=== PATIENT | female | born 1980 | race Caucasian/White ===

== ENCOUNTER 2019-11-20 12:58 | Inpatient (IN) | payer MEDICARE, OTHER ==
[~2019-11-20] VITALS: Ht 165.1 cm; Wt 65.0 kg
[2019-11-20 13:00] VITALS: BP 138/73
--- NOTE | 2019-11-20 13:12 | Emergency Room Report ---
History of Present Illness General Chief Complaint: Behavioral Complaint Source: EMS Present Illness HPI 41-year-old female presents to the emergency department brought by ambulance and accompanied by PD who is placing patient on 5150 hold for danger to others. EMS was called on scene to and altered person he was banging on doors and having delirious thoughts. Per PD patient fixated on a set of their keys and attempted to take the keys off of their gun belts. Patient gave several names however she continues to be a [employer] Payne. Patient is not complaining of pain however does appear to have ecchymosis around the right orbital area. Per PD patient was ambulatory and verbal. Patient was having flights of ideas and incoherent speech and was not following commands. Pt. was not given anything enroute to ED. HPI and ROS are limited due to poor pt. cooperation. Allergies: Coded Allergies: UNABLE TO ASSESS (Unverified , 11/20/19) COVID-19 Screening Contact w/high risk pt: No Experienced COVID-19 symptoms?: No COVID-19 Testing performed HUNTER GUIDE: No Patient History Past Medical History: see triage record Past Surgical History: none Reviewed Nursing Documentation: PMH: Agreed; PSxH: Agreed Nursing Documentation-PMH Past Medical History: Deferred Review of Systems All Other Systems: negative except mentioned in HPI Physical Exam Vital Signs Date Time Temp Pulse Resp B/P (MAP) Pulse Ox O2 Delivery O2 Flow Rate FiO2 11/20/19 12:51 98.8 92 16 134/68 (90) 98 Room Air Sp02 EP Interpretation: reviewed, normal General Appearance: no apparent distress, alert, GCS 15, non-toxic, other - Disheveled Head: normocephalic, other - swelling and ecchymosis of the right periorbital ST's. Eyes: bilateral eye normal inspection, bilateral eye PERRL, bilateral eye other - constricted pupils ENT: hearing grossly normal, normal voice Neck: full range of motion, no bony tend Respiratory: chest non-tender, lungs clear, normal breath sounds, no respiratory distress, no accessory muscle use, no wheezing, speaking full sentences Cardiovascular #1: regular rate, rhythm, no edema Gastrointestinal: normal bowel sounds, non tender, soft, non-distended, no guarding Musculoskeletal: normal range of motion, gait/station normal, non-tender Neurologic: alert, responsive - to loud or painful stimuli, speech normal, no focal defects Psychiatric: other - Pt. not awake and alert to assess Skin: abrasion - bilateral hands, scabbing and crusting noted to 2cm abrasion of the dorsal left wrist. swelling and ecchymosis of the right periorbital ST's. Medical Decision Making PA Attestation Dr. Andrade Is my supervising Physician whom patient management has been discussed with. Diagnostic Impression: Primary Impression: Pneumonia Qualified Codes: J18.9 - Pneumonia, unspecified organism Additional Impressions: Behavioral disorder Agitation ER Course 41-year-old female presents to the emergency department brought by ambulance and accompanied by PD who is placing patient on 5150 hold for danger to others. EMS was called on scene to and altered person he was banging on doors and having delirious thoughts. Per PD patient fixated on a set of their keys and attempted to take the keys off of their gun belts. Patient gave several names however she continues to be a Genesis Payne. Patient is not complaining of pain however does appear to have ecchymosis around the right orbital area. Per PD patient was ambulatory and verbal. Patient was having flights of ideas and incoherent speech and was not following commands. Pt. was not given anything enroute to ED. HPI and ROS are limited due to poor pt. cooperation. Ddx considered but are not limited to OD, SI/HI, psychosis, UTI, intoxication, acute delirium, concussion, intracranial process just name a few Vital signs: are WNL, pt. is afebrile H&PE are most consistent with behavioral/mental health issue ORDERS: -Bedside Accu-Chek was 137 -CBC: WNL - CMP: Unremarkable - serum ETOH: negative -UA: negative for infection see results attached. -UDS: Positive for THC only -BNP: 43 WNL -Salicylates and Acetaminophen - no acute intoxication. -COVID: negative ED INTERVENTIONS: - 1 Liter NS Bolus IV -Pt. placed on 2 Liters NC - Levaquin IV DISPOSITION: at this time pt. will be admitted to Dr. Morgan for Pneumonia, ALOC , and behavioral disorder. Dr. Morgan agreed to admit the pt. and to continue pt. care management. Labs Test 11/20/19 13:10 White Blood Count 9.0 K/UL (4.8-10.8) Red Blood Count 4.23 M/UL (4.20-5.40) Hemoglobin 13.0 G/DL (12.0-16.0) Hematocrit 37.8 % (37.0-47.0) Mean Corpuscular Volume 89 FL (80-99) Mean Corpuscular Hemoglobin 30.8 PG (27.0-31.0) Mean Corpuscular Hemoglobin Concent 34.5 G/DL (32.0-36.0) Red Cell Distribution Width 14.6 % (11.6-14.8) Platelet Count 257 K/UL (150-450) Mean Platelet Volume 7.5 FL (6.5-10.1) Neutrophils (%) (Auto) 60.9 % (45.0-75.0) Lymphocytes (%) (Auto) 31.8 % (20.0-45.0) Monocytes (%) (Auto) 5.2 % (1.0-10.0) Eosinophils (%) (Auto) 1.0 % (0.0-3.0) Basophils (%) (Auto) 1.2 % (0.0-2.0) Urine HCG, Qualitative Negative (NEGATIVE) Sodium Level 134 MMOL/L (136-145) Potassium Level 3.4 MMOL/L (3.5-5.1) Chloride Level 98 MMOL/L (98-107) Carbon Dioxide Level 28 MMOL/L (21-32) Anion Gap 8 mmol/L (5-15) Blood Urea Nitrogen 9 mg/dL (7-18) Creatinine 1.2 MG/DL (0.55-1.30) Estimat Glomerular Filtration Rate 49.8 mL/min (>60) Glucose Level 126 MG/DL (74-106) Calcium Level 8.8 MG/DL (8.5-10.1) Total Bilirubin 0.7 MG/DL (0.2-1.0) Aspartate Amino Transf (AST/SGOT) 71 U/L (15-37) Alanine Aminotransferase (ALT/SGPT) 45 U/L (12-78) Alkaline Phosphatase 55 U/L (46-116) Pro-B-Type Natriuretic Peptide 43 pg/mL (0-125) Total Protein 7.2 G/DL (6.4-8.2) Albumin 4.1 G/DL (3.4-5.0) Globulin 3.1 g/dL Albumin/Globulin Ratio 1.3 (1.0-2.7) Salicylates Level 4.7 ug/mL (2.8-20) Urine Opiates Screen Negative (NEGATIVE) Acetaminophen Level < 2 MCG/ML (10-30) Urine Barbiturates Screen Negative (NEGATIVE) Phencyclidine (PCP) Screen Negative (NEGATIVE) Urine Amphetamines Screen Negative (NEGATIVE) Urine Benzodiazepines Screen Negative (NEGATIVE) Urine Cocaine Screen Negative (NEGATIVE) Urine Marijuana (THC) Screen Positive (NEGATIVE) Serum Alcohol < 3 mg/dL EKG Diagnostic Results Rate: normal - 61 Bpm Rhythm: NSR ST Segments: no acute changes ASA given to the pt in ED: No PA Scribe Text This Interpretation was scribed by RONALDO Garibay. Chest X-Ray Diagnostic Results Chest X-Ray Diagnostic Results : Chest X-Ray Ordered: Yes # of Views/Limited/Complete: 1 View Indication: Shortness of Breath EP Interpretation: Yes PA Xray: Interpretation reviewed, by supervising MD, and agrees with findings. Interpretation: no effusion, no pneumothorax, other - mild interstitial fluids Impression: Other - abnormal Electronically Signed by: Juliana Garibay PA-C CT/MRI/US Diagnostic Results CT/MRI/US Diagnostic Results #1: Imaging Test Ordered: Ct Head No Contrast Impression " No evidence of acute fracture, hemorrhage, or intracranial process" . --Per official radiology report- Please see report for specific details. CT/MRI/US Diagnostic Results #2: Imaging Test Ordered: CT Facial Bones no Contrast Impression " Swelling of the soft tissues of the right periorbital region, no acute fractures" . --Per official radiology report- Please see report for specific details. Last Vital Signs Date Time Temp Pulse Resp B/P (MAP) Pulse Ox O2 Delivery O2 Flow Rate FiO2 11/20/19 12:51 98.8 92 16 134/68 (90) 98 Room Air Disposition: ADMITTED INPATIENT Condition: Serious Scripts Unable to Obtain Active Prescriptions or Reported Meds Juliana Garibay Nov 20, 2019 13:12
[2019-11-20 13:42] LABS: BASOPHILS % (AUTO) 1.2 % (0.0-2.0); HEMATOCRIT 37.8 % (37.0-47.0); LYMPHOCYTES % (AUTO) 31.8 % (20.0-45.0); MEAN CORPUSCULAR VOLUME 89 FL (80-99); MONOCYTES % (AUTO) 5.2 % (1.0-10.0); NEUTROPHILS % (AUTO) 60.9 % (45.0-75.0); PLATELET COUNT 257 K/UL (150-450); RED BLOOD COUNT 4.23 M/UL (4.20-5.40); RED CELL DISTRIBUTION WIDTH 14.6 % (11.6-14.8)
[2019-11-20 13:48] LABS: ANION GAP 8 mmol/L (5-15); BLOOD UREA NITROGEN 9 mg/dL (7-18); CALCIUM 8.8 MG/DL (8.5-10.1); CARBON DIOXIDE 28 MMOL/L (21-32); CHLORIDE 98 MMOL/L (98-107); CREATININE 1.2 MG/DL (0.55-1.30); POTASSIUM 3.4 MMOL/L (3.5-5.1); SODIUM 134 MMOL/L (136-145)
[2019-11-20 13:57] LABS: ALANINE AMINOTRANSFERASE 45 U/L (12-78); ALBUMIN 4.1 G/DL (3.4-5.0); ALBUMIN/GLOBULIN RATIO 1.3 (1.0-2.7); ALKALINE PHOSPHATASE 55 U/L (46-116); ASPARTATE AMINO TRANSFERASE 71 U/L (15-37); BILIRUBIN,TOTAL 0.7 MG/DL (0.2-1.0)
[2019-11-20 15:20] VITALS: BP 92/66
--- NOTE | 2019-11-20 15:54 | Diagnostic Imaging Report ---
Indications: Pain and right periorbital ecchymosis Technique: Spiral images obtained through the facial bones. No IV contrast utilized. Multiplanar reconstructions were generated.Total dose length product 329 mGycm. CTDIvol(s) 15 mGy. Dose reduction achieved using automated exposure control Comparison: none Findings: Some image degradation due to motion artifact. There is minimal right periorbital soft tissue swelling. No acute fractures. No worrisome sinus opacification. The optic globes and retroseptal orbits are intact. There is evidence of multiple maxillary apical root abscesses and a right mandibular apical root abscess. There is also evidence of multiple dental caries There is asymmetric appearance to the bilateral parotid glands, with the right parotid gland being fatty replaced. There is lingual jewelry noted. Impression: Findings as noted. No definite acute bony trauma. Evidence of dental disease as described The CT scanner at [facility] is accredited by the [employer] and the scans are performed using protocols designed to limit radiation exposure to as low as reasonably achievable to attain images of sufficient resolution adequate for diagnostic evaluation.
--- NOTE | 2019-11-20 15:56 | Diagnostic Imaging Report ---
Indications: Altered level of consciousness Technique: Spiral acquisitions obtained through the brain. Angled axial and coronal 5 x 5 mm slices were reconstructed. Total dose length product 1018 mGycm. CTDI vol(s) 53 mGy. Dose reduction achieved using automated exposure control Comparison: None. Findings: No acute intracranial hemorrhage or edema. No mass effect or midline shift. Normal evans-white differentiation. Normal size ventricles and extra axial CSF spaces. Visualized orbits and sinuses are unremarkable. The mastoids are clear. The calvarium is intact Impression: Negative The CT scanner at [facility] is accredited by the [employer] and the scans are performed using protocols designed to limit radiation exposure to as low as reasonably achievable to attain images of sufficient resolution adequate for diagnostic evaluation.
[2019-11-20 17:20] VITALS: BP 121/69
--- NOTE | 2019-11-20 17:39 | Diagnostic Imaging Report ---
Indication: Chest Technique: One view of the chest Comparison: none Findings: There is equivocal mild interstitial congestion. Heart size is normal. No focal airspace consolidation. Pleural spaces are clear. Impression: Questionable mild interstitial congestion. Correlate with clinical findings
[2019-11-20 21:08] VITALS: BP 120/69
[2019-11-20] MEDS ORDERED: Acetaminophen 500mg (ES) tab ORAL PRN (22:15)
[2019-11-20] MEDS ORDERED: LORazepam Inj 2mg/ml 1ml IM ONE (22:30)
[2019-11-20] MEDS: LORazepam 1mg tab ORAL PRN (22:43)
[2019-11-21 08:00] VITALS: BP 128/87
[2019-11-21] MEDS: LORazepam 1mg tab ORAL PRN (08:51)
[2019-11-21 08:59] LABS: BASOPHILS % (AUTO) 1.7 % (0.0-2.0); EOSINOPHILS % (AUTO) 2.3 % (0.0-3.0); HEMATOCRIT 41.9 % (37.0-47.0); HEMOGLOBIN 14.4 G/DL (12.0-16.0); LYMPHOCYTES % (AUTO) 35.7 % (20.0-45.0); MEAN CORPUSCULAR VOLUME 90 FL (80-99); MONOCYTES % (AUTO) 4.8 % (1.0-10.0); NEUTROPHILS % (AUTO) 55.4 % (45.0-75.0); PLATELET COUNT 281 K/UL (150-450); RED BLOOD COUNT 4.64 M/UL (4.20-5.40); WHITE BLOOD COUNT 9.1 K/UL (4.8-10.8)
[2019-11-21 09:55] LABS: ALANINE AMINOTRANSFERASE 43 U/L (12-78); ALBUMIN 4.1 G/DL (3.4-5.0); ALBUMIN/GLOBULIN RATIO 1.2 (1.0-2.7); ALKALINE PHOSPHATASE 56 U/L (46-116); ANION GAP 6 mmol/L (5-15); ASPARTATE AMINO TRANSFERASE 47 U/L (15-37); BILIRUBIN,TOTAL 0.7 MG/DL (0.2-1.0); BLOOD UREA NITROGEN 8 mg/dL (7-18); CALCIUM 8.7 MG/DL (8.5-10.1); CARBON DIOXIDE 30 MMOL/L (21-32); CHLORIDE 103 MMOL/L (98-107); CREATININE 1.2 MG/DL (0.55-1.30); SODIUM 139 MMOL/L (136-145)
[2019-11-21] MEDS: Haloperidol 5mg/ml Inj IM PRN (11:32)
[2019-11-21 12:00] VITALS: BP 123/80
[2019-11-21] MEDS ORDERED: Varibar Thin Liquid powder 148gm MC PRN (15:30)
[2019-11-21] MEDS ORDERED: Varibar Pudding 230ml MC PRN (15:30)
[2019-11-21] MEDS ORDERED: Varibar Honey 250ml MC PRN (15:30)
[2019-11-21] MEDS ORDERED: Varibar Nectar 240ml MC PRN (15:30)
[2019-11-21 16:00] VITALS: BP 115/62
[2019-11-21] MEDS ORDERED: Haloperidol Decanoate (Long Acting) 50mg Inj IM ONE (17:00)
--- NOTE | 2019-11-21 18:15 | Consultation ---
DATE OF CONSULTATION: 11/21/2019 INFECTIOUS DISEASES CONSULTATION CONSULTING PHYSICIAN: Murray Duncan MD PRIMARY ATTENDING PHYSICIAN: Anselmo Morgan MD REASON FOR CONSULT: Abnormal chest x-ray. HISTORY OF PRESENT ILLNESS: The patient is a 39-year-old white female admitted yesterday because of altered level of consciousness. The patient was confused, knocking at the people's door, and was brought up by police department. She was put on 5150 for danger to others. The patient does not remember exactly what happened. PAST MEDICAL HISTORY: Significant for marijuana abuse and history of thyroid cancer. She had thyroidectomy and currently has hypothyroidism. She is homeless. ALLERGIES: This patient states she is allergic to penicillin. MEDICATIONS: Got a dose of Levaquin. Getting haloperidol, Remeron, lorazepam, and Tylenol. SOCIAL HISTORY: Single. Homeless. Smoker. Uses medical marijuana. States that she has a daughter. REVIEW OF SYSTEMS: Denies any fever or chills. Denies coughing. No nausea. No vomiting. No dysuria. Scratches on both arms. Does not remember what happened there. PHYSICAL EXAMINATION: VITAL SIGNS: Temperature 97.4, pulse 65, blood pressure 128/87. GENERAL APPEARANCE: Seems to have normal weight. HEAD AND NECK: She has right eye bruise that seems to be a couple of days old. HEART: Normal rate. LUNGS: Clear. ABDOMEN: Soft. EXTREMITIES: She has no edema, finger clubbing. SKIN: Lacerations on both knuckles. NEUROLOGIC: She is awake, alert, and oriented x3. LABORATORY AND DIAGNOSTIC DATA: Sodium 139, potassium 4, chloride 103, bicarb 30, BUN 8, creatinine 1.2, glucose is 47. WBC 9.1, hemoglobin 14.4, hematocrit 41.9, and platelet is 281,000. Urine toxicology was positive for marijuana. COVID-19 test was negative. Chest x-ray showed mild interstitial congestion. CT scan of the head was negative except dental disease. IMPRESSION: Abnormal chest x-ray, mostly likely secondary to chronic smoking, COPD. The patient does not look septic. She has nicotine dependence and willing to quit. She has multiple lacerations on both hands that do not look infected, nicotine dependence, has hypothyroidism, and has hypoglycemia. RECOMMENDATION: We will start the patient on nicotine patch. We will check TSH level. Needs an endocrine evaluation for hypothyroidism. At the end of my exam, I thank Dr. Morgan for involving me in the care of this patient. Murray Duncan M.D. DR: MARILU JOB#: [id number] CC:
--- NOTE | 2019-11-21 18:55 | Consultation ---
Consult Note Consult Note CONSULTING PHYSICIAN: Abel Mcgee MD PRIMARY ATTENDING PHYSICIAN: Anselmo Morgan MD REASON FOR CONSULT: Abnormal chest x-ray. HISTORY OF PRESENT ILLNESS: The patient is a 39-year-old white female admitted yesterday because of altered level of consciousness. The patient was confused, knocking at the people's door, and was brought up by police department. She was put on 5150 for danger to others. The patient does not remember exactly what happened. Her CXR shows mild inyterstitial prominence. She denies any respiratory symptoms. PAST MEDICAL HISTORY: Significant for marijuana abuse and history of thyroid cancer. She had thyroidectomy and currently has hypothyroidism. She is homeless. ALLERGIES: This patient states she is allergic to penicillin. SOCIAL HISTORY: Single. Homeless. Smoker. Uses medical marijuana. REVIEW OF SYSTEMS: Denies any fever or chills. Denies coughing. No nausea. No vomiting. No dysuria. Scratches on both arms. Does not remember what happened there. PHYSICAL EXAMINATION: VITAL SIGNS: Temperature 97.4, pulse 65, blood pressure 128/87. GENERAL APPEARANCE: Seems to have normal weight. HEAD AND NECK: She has right eye bruise that seems to be a couple of days old. HEART: Normal rate. LUNGS: Clear. ABDOMEN: Soft. EXTREMITIES: She has no edema, finger clubbing. SKIN: Lacerations on both knuckles. NEUROLOGIC: She is awake, alert, and oriented x3. LABORATORY AND DIAGNOSTIC DATA: Sodium 139, potassium 4, chloride 103, bicarb 30, BUN 8, creatinine 1.2, glucose is 47. WBC 9.1, hemoglobin 14.4, hematocrit 41.9, and platelet is 281,000. Urine toxicology was positive for marijuana. COVID-19 test was negative. Chest x-ray showed mild interstitial congestion. CT scan of the head was negative except dental disease. IMPRESSION: Abnormal chest x-ray, non-specific; do not suspect pneumonia Likely underlying COPD RECOMMENDATION: None from pulmonary standpoint Advised tobacco cessation Jo Cohen Omar Syed MD Nov 21, 2019 18:55
[2019-11-21 20:00] VITALS: BP 119/78
--- NOTE | 2019-11-21 21:51 | Initial Psychiatric Evaluation ---
Psychiatry Consultation Psychiatry Consultation Chief Complaint: Behavioral Complaint Allergies: Coded Allergies: UNABLE TO ASSESS (Unverified , 11/20/19) Medication History Unable to Obtain Active Prescriptions or Reported Meds Objective Data Height (Feet): 5 Height (Inches): 5.00 Weight (Pounds): 140 Laureen Nesbitt MD Nov 21, 2019 21:51
--- NOTE | 2019-11-21 23:14 | Consultation ---
DATE OF CONSULTATION: 11/20/2019 CONSULTING PHYSICIAN: Laureen Nesbitt MD. HISTORY OF PRESENT ILLNESS: This is a 39-year-old female who has been admitted yesterday. I have seen patient yesterday and have prescribed medication. This is a late entry. Patient presented to the emergency room on a 5150 for danger to others. Patient is delusional. Apparently, she has been banging on door and has been delusional. Patient in the hospital states that she is looking for her child. She needs to go and olya her daughter. She is jumping from one subject to another and she is easily agitated. She received a cocktail last night for aggressive and agitation. PAST PSYCHIATRIC HISTORY: Unknown. It appears that patient has history of psychotic disorder. PAST MEDICAL HISTORY: History of pneumonia. ALLERGIES: Unknown. SUBSTANCE ABUSE HISTORY: Her system is positive for cannabis. MENTAL STATUS EXAMINATION: Patient is alert, disoriented. Mood is agitated. Affect is flat. Thought process is disorganized. Thought content is significant for delusional thoughts. Cognition is impaired. Insight and judgment impaired. ASSESSMENT: Nebo I Schizophrenia. Nebo II Deferred. Nebo III As above. Nebo IV Homelessness. Nebo V 20. PLAN: 1. We will start patient on risperidone. 2. Ativan p.r.n. 3. Haldol decanoate. 4. Discussed with the nurse. Laureen Nesbitt M.D. DR: JERICHO JOB#: [id number] CC:
--- NOTE | 2019-11-21 23:14 | History and Physical Report ---
DATE OF ADMISSION: 11/20/2019 HISTORY OF PRESENT ILLNESS: The patient is admitted for altered mental status, came on a hold for agitation, attacking police. The patient was initially nonresponsive, sleeping, was only aroused initially by painful and loud verbal stimuli. Her O2 sat was initially borderline, was placed on oxygen in the emergency room. Chest x-ray showed interstitial infiltrates. Now, she is more alert and slow to respond, but is completely alert and oriented x2. Denies pain. Denies shortness of breath. Denies fever or chills. Denies abdominal pain. Denies constipation. PAST MEDICAL HISTORY: Significant for psychosis and mood disorder and history of thyroid cancer. The patient is currently homeless. PAST SURGICAL HISTORY: Total thyroidectomy, neck surgery. FAMILY HISTORY: Noncontributory. SOCIAL HISTORY: The patient has history of smoking, history of drug abuse, history of alcohol abuse. The patient is homeless. MEDICATIONS: None. REVIEW OF SYSTEMS: HEENT: Denies headaches. RESPIRATORY: Denies shortness of breath. Denies cough. CARDIOVASCULAR: Denies chest pain. Denies nausea, vomiting, or diarrhea. EXTREMITIES: Denies pain. CENTRAL NERVOUS SYSTEM: Denies changes in speech pattern. PHYSICAL EXAMINATION: VITAL SIGNS: Temperature is 97.4, pulse is 65, blood pressure 128/87. HEENT: PERRLA. NECK: Supple. No lymphadenopathy. CHEST: Clear to auscultation. CARDIOVASCULAR: Regular rate and rhythm. No murmurs or extra sounds. GASTROINTESTINAL: Soft, nontender, nondistended. No organomegaly. EXTREMITIES: No edema. Moves all four extremities. Sensory intact. Reflexes on both sides. Oriented x2 LABORATORY DATA: WBC of 9, hemoglobin 13, platelets of 257. Sodium 134, potassium 3.4, BUN of 9, creatinine 1.2, and glucose 126. ASSESSMENT AND PLAN: Altered mental status, psychiatric patient, schizophrenia, combative initially, currently easily agitated and irritable. I have consulted Dr. Araujo, Dr. Murray Duncan, Dr. Abel Mcgee, and Dr. Nesbitt to help with the management of the above-mentioned abnormalities and symptoms. Anselmo Morgan M.D. DR: LIONEL JOB#: [id number] CC:
[2019-11-22 04:00] VITALS: BP 113/57
[2019-11-22 08:00] VITALS: BP 117/74
--- NOTE | 2019-11-22 09:25 | Consultation ---
History of Present Illness General Date patient seen: Nov 22, 2019 Time patient seen: 09:15 - am Chief Complaint: Generalized body pain Referring physician: Eddie Reason for Consultation: Pain Management Present Illness HPI HPI: This is a 39 y/o female seen on the med/surg floor of [facility] for initial pain management consultation. Patient was admitted under the care of Dr. Morgan due to psychiatric disorder. Has a h/o thyroid cancer and thyroidectomy c/o generalized body pain, started on Tylenol 500mg PO 1 tab Q6H PRN. At this time showing no signs of pain and we were consulted so patient has adequate pain control while here in the hospital. PAST MEDICAL HISTORY: Significant for psychosis and mood disorder and history of thyroid cancer. The patient is currently homeless. PAST SURGICAL HISTORY: Total thyroidectomy, neck surgery. FAMILY HISTORY: Noncontributory. SOCIAL HISTORY: The patient has history of smoking, history of drug abuse, history of alcohol abuse. The patient is homeless. MEDICATIONS: None. Allergies: Coded Allergies: UNABLE TO ASSESS (Unverified , 11/20/19) Medication History Unable to Obtain Active Prescriptions or Reported Meds Patient History Healthcare decision maker Resuscitation status Advanced Directive on File Review of Systems ROS Narrative REVIEW OF SYSTEMS: HEENT: Denies headaches. RESPIRATORY: Denies shortness of breath. Denies cough. CARDIOVASCULAR: Denies chest pain. Denies nausea, vomiting, or diarrhea. EXTREMITIES: Denies pain. CENTRAL NERVOUS SYSTEM: Denies changes in speech pattern. Physical Exam Physical Exam Narrative PHYSICAL EXAMINATION: VITAL SIGNS: Temperature is 97.4, pulse is 65, blood pressure 128/87. HEENT: PERRLA. NECK: Supple. No lymphadenopathy. CHEST: Clear to auscultation. CARDIOVASCULAR: Regular rate and rhythm. No murmurs or extra sounds. GASTROINTESTINAL: Soft, nontender, nondistended. No organomegaly. EXTREMITIES: No edema. Moves all four extremities. Sensory intact. Reflexes on both sides. Oriented x2 Last 24 Hour Vital Signs Date Time Temp Pulse Resp B/P (MAP) Pulse Ox O2 Delivery O2 Flow Rate FiO2 11/22/19 08:00 98.0 75 18 117/74 (88) 98 11/22/19 04:00 97.8 77 18 113/57 (75) 97 11/21/19 21:00 Room Air 11/21/19 20:00 98.6 78 18 119/78 (92) 97 11/21/19 16:00 98.3 79 20 115/62 (79) 97 11/21/19 12:00 97.9 51 20 123/80 (94) 100 Intake and Output 11/21/19 11/22/19 19:00 07:00 Intake Total 780 ml Balance 780 ml Intake Oral 780 ml # Voids 3 3 Laboratory Tests Test 11/22/19 05:20 Thyroid Stimulating Hormone (TSH) 101.892 uiU/mL (0.358-3.740) Height (Feet): 5 Height (Inches): 5.00 Weight (Pounds): 140 Medications Current Medications Medications (Trade) Dose Ordered Sig/Alicia Route PRN Reason Start Time Stop Time Status Last Admin Dose Admin Acetaminophen (Tylenol) 500 mg Q6HR PRN ORAL Mild Pain (Pain Scale 1-3) 11/20/19 22:15 12/20/19 22:14 Barium Sulfate (Varibar Honey) 250 ml NOW PRN MC RAD 11/21/19 15:30 11/24/19 15:18 Barium Sulfate (Varibar Edmundson) 240 ml NOW PRN MC RAD 11/21/19 15:30 11/24/19 15:18 Barium Sulfate (Varibar Pudding) 230 ml NOW PRN MC RAD 11/21/19 15:30 11/24/19 15:18 Barium Sulfate (Varibar Thin Liquid powder) 148 gm NOW PRN MC RAD 11/21/19 15:30 11/24/19 15:18 Haloperidol Lactate (Haldol) 10 mg Q8H PRN IM AGITATION 11/20/19 22:45 01/04/20 22:44 11/21/19 11:32 Lorazepam (Ativan) 1 mg Q4HR PRN ORAL For Anxiety 11/20/19 22:15 11/27/19 22:14 11/21/19 08:51 Nicotine (Nicoderm) 1 patch Q24H TDERMAL 11/21/19 11:30 02/19/20 11:29 11/21/19 11:10 Risperidone (RisperDAL) 2 mg BEDTIME ORAL 11/21/19 21:00 01/05/20 20:59 11/21/19 21:05 Sodium Chloride 1,000 ml @ 60 mls/hr [id number] IV 11/20/19 22:15 12/20/19 22:14 11/20/19 22:40 Assessment/Plan Assessment/Plan: (1) Peripheral Neuropathy Patient will be continued on Tylenol Possible to start the patient on Neurontin will discuss more with patient. D/w Dr. Harper and he concurred. Thank you for consult. Raheel Blanchard Nov 22, 2019 09:25
--- NOTE | 2019-11-22 09:38 | Pulmonology Progress Note ---
Subjective Interval Events: None new Constitutional: Reports: no symptoms HEENT: Repors: no symptoms Respiratory: Reports: no symptoms Cardiovascular: Reports: no symptoms Gastrointestinal/Abdominal: Reports: no symptoms Neurologic: Reports: no symptoms Allergies: Coded Allergies: UNABLE TO ASSESS (Unverified , 11/20/19) Objective Last 24 Hour Vital Signs Date Time Temp Pulse Resp B/P (MAP) Pulse Ox O2 Delivery O2 Flow Rate FiO2 11/22/19 08:00 98.0 75 18 117/74 (88) 98 11/22/19 04:00 97.8 77 18 113/57 (75) 97 11/21/19 21:00 Room Air 11/21/19 20:00 98.6 78 18 119/78 (92) 97 11/21/19 16:00 98.3 79 20 115/62 (79) 97 11/21/19 12:00 97.9 51 20 123/80 (94) 100 Intake and Output 11/21/19 11/22/19 19:00 07:00 Intake Total 780 ml Balance 780 ml Intake Oral 780 ml # Voids 3 3 General Appearance: no acute distress HEENT: normocephalic Respiratory: chest wall non-tender, lungs clear Cardiovascular: normal peripheral pulses, normal rate Abdomen: normal bowel sounds Microbiology Date/Time Source Procedure Growth Status 11/20/19 18:39 Nasopharynx SARS-CoV-2 RdRp Gene Assay - Final Complete 11/20/19 20:33 Rectum Received Laboratory Tests 11/22/19 05:20: Thyroid Stimulating Hormone (TSH) 101.892H Current Medications Medications (Trade) Dose Ordered Sig/Alicia Route PRN Reason Start Time Stop Time Status Last Admin Dose Admin Acetaminophen (Tylenol) 500 mg Q6HR PRN ORAL Mild Pain (Pain Scale 1-3) 11/20/19 22:15 12/20/19 22:14 Barium Sulfate (Varibar Honey) 250 ml NOW PRN MC RAD 11/21/19 15:30 11/24/19 15:18 Barium Sulfate (Varibar [place]) 240 ml NOW PRN MC RAD 11/21/19 15:30 11/24/19 15:18 Barium Sulfate (Varibar Pudding) 230 ml NOW PRN MC RAD 11/21/19 15:30 11/24/19 15:18 Barium Sulfate (Varibar Thin Liquid powder) 148 gm NOW PRN MC RAD 11/21/19 15:30 11/24/19 15:18 Haloperidol Lactate (Haldol) 10 mg Q8H PRN IM AGITATION 11/20/19 22:45 01/04/20 22:44 11/21/19 11:32 Lorazepam (Ativan) 1 mg Q4HR PRN ORAL For Anxiety 11/20/19 22:15 11/27/19 22:14 11/21/19 08:51 Nicotine (Nicoderm) 1 patch Q24H TDERMAL 11/21/19 11:30 02/19/20 11:29 11/21/19 11:10 Risperidone (RisperDAL) 2 mg BEDTIME ORAL 11/21/19 21:00 01/05/20 20:59 11/21/19 21:05 Sodium Chloride 1,000 ml @ 60 mls/hr [id number] IV 11/20/19 22:15 12/20/19 22:14 11/20/19 22:40 Assessment/Plan Assessment/Plan IMPRESSION: Abnormal chest x-ray, non-specific; do not suspect pneumonia Likely underlying COPD RECOMMENDATION: None from pulmonary standpoint Advised tobacco cessation Medically stable to discharge Jo Cohen Omar Syed MD Nov 22, 2019 09:38
[2019-11-22 12:00] VITALS: BP 129/69
--- NOTE | 2019-11-22 13:27 | Infectious Diseases Prog Note ---
Assessment/Plan Assessment/Plan IMPRESSION: Abnormal chest x-ray, COPD. The patient does not look septic. Nicotine dependence Multiple abrasions on both hands Hypothyroidism, Hypoglycemia. RECOMMENDATION: Continue nicotine patch. Start on Levothyroxine Subjective ROS Limited/Unobtainable: No Constitutional: Reports: no symptoms Respiratory: Reports: no symptoms Cardiovascular: Reports: no symptoms Gastrointestinal/Abdominal: Reports: no symptoms Genitourinary: Reports: no symptoms Allergies: Coded Allergies: UNABLE TO ASSESS (Unverified , 11/20/19) Objective Last 24 Hour Vital Signs Date Time Temp Pulse Resp B/P (MAP) Pulse Ox O2 Delivery O2 Flow Rate FiO2 11/22/19 09:00 Room Air 11/22/19 09:00 Room Air 11/22/19 08:00 98.0 75 18 117/74 (88) 98 11/22/19 04:00 97.8 77 18 113/57 (75) 97 11/21/19 21:00 Room Air 11/21/19 20:00 98.6 78 18 119/78 (92) 97 11/21/19 16:00 98.3 79 20 115/62 (79) 97 Height (Feet): 5 Height (Inches): 5.00 Weight (Pounds): 140 General Appearance: no acute distress HEENT: mucous membranes moist Respiratory/Chest: lungs clear Cardiovascular: normal rate Abdomen: soft, non tender Extremities: no edema Neurologic/Psychiatric: alert, responsive Microbiology Date/Time Source Procedure Growth Status 11/20/19 18:39 Nasopharynx SARS-CoV-2 RdRp Gene Assay - Final Complete 11/20/19 20:33 Rectum Received Laboratory Tests Test 11/22/19 05:20 Thyroid Stimulating Hormone (TSH) 101.892 uiU/mL (0.358-3.740) Current Medications Medications (Trade) Dose Ordered Sig/Alicia Route PRN Reason Start Time Stop Time Status Last Admin Dose Admin Acetaminophen (Tylenol) 500 mg Q6HR PRN ORAL Mild Pain (Pain Scale 1-3) 11/20/19 22:15 12/20/19 22:14 Barium Sulfate (Varibar Honey) 250 ml NOW PRN MC RAD 11/21/19 15:30 11/24/19 15:18 Barium Sulfate (Varibar [place]) 240 ml NOW PRN MC RAD 11/21/19 15:30 11/24/19 15:18 Barium Sulfate (Varibar Pudding) 230 ml NOW PRN MC RAD 11/21/19 15:30 11/24/19 15:18 Barium Sulfate (Varibar Thin Liquid powder) 148 gm NOW PRN RAD 11/21/19 15:30 11/24/19 15:18 Haloperidol Lactate (Haldol) 10 mg Q8H PRN IM AGITATION 11/20/19 22:45 01/04/20 22:44 11/21/19 11:32 Lorazepam (Ativan) 1 mg Q4HR PRN ORAL For Anxiety 11/20/19 22:15 11/27/19 22:14 11/21/19 08:51 Nicotine (Nicoderm) 1 patch Q24H TDERMAL 11/21/19 11:30 02/19/20 11:29 11/22/19 11:19 Risperidone (RisperDAL) 2 mg BEDTIME ORAL 11/21/19 21:00 01/05/20 20:59 11/21/19 21:05 Sodium Chloride 1,000 ml @ 60 mls/hr [id number] IV 11/20/19 22:15 12/20/19 22:14 11/20/19 22:40 Murray Duncan MD Nov 22, 2019 13:27
[2019-11-22 16:00] VITALS: BP 125/85
[2019-11-22] MEDS: Haloperidol 5mg/ml Inj IM PRN (20:13)
[2019-11-22 20:30] VITALS: BP 128/78
--- NOTE | 2019-11-22 20:57 | General Progress Note ---
Assessment/Plan Problem List: (1) Alteration consciousness ICD Codes: R40.4 - Transient alteration of awareness SNOMED: 4819089 (2) Agitation ICD Codes: R45.1 - Restlessness and agitation SNOMED: 685939320 (3) Behavioral disorder SNOMED: 462254294 (4) Pneumonia ICD Codes: J18.9 - Pneumonia, unspecified organism SNOMED: 421308267 Qualifiers: Qualified Codes: J18.9 - Pneumonia, unspecified organism Status: progressing Assessment/Plan: afebrile psychosis transfer/dc to appropiate place per recommendation of dr velez pt is mutiple psychiatric diagnosis needs clearance from dr velez for dc Subjective ROS Limited/Unobtainable: Yes Allergies: Coded Allergies: UNABLE TO ASSESS (Unverified , 11/20/19) Objective Last 24 Hour Vital Signs Date Time Temp Pulse Resp B/P (MAP) Pulse Ox O2 Delivery O2 Flow Rate FiO2 11/22/19 16:00 98.0 72 20 125/85 (98) 100 11/22/19 12:00 97.8 74 18 129/69 (89) 98 11/22/19 09:00 Room Air 11/22/19 09:00 Room Air 11/22/19 08:00 98.0 75 18 117/74 (88) 98 11/22/19 04:00 97.8 77 18 113/57 (75) 97 11/21/19 21:00 Room Air Intake and Output 11/21/19 11/22/19 19:00 07:00 Intake Total 780 ml Balance 780 ml Intake Oral 780 ml # Voids 3 3 Laboratory Tests 11/22/19 05:20: Thyroid Stimulating Hormone (TSH) 101.892H Height (Feet): 5 Height (Inches): 5.00 Weight (Pounds): 140 Anselmo Morgan MD Nov 22, 2019 20:57
[2019-11-22] MEDS ORDERED: DiphenhydrAMINE 50mg/ml Inj IM SCH (21:00)
--- NOTE | 2019-11-22 21:35 | Psych Consult Progress Note ---
Psychiatry Progress Note Psychiatry Progress Note Subjective the pt was agitated and confused the pt lacks capacity to make decisions. and should not leave ama/ the pt is delusional Medications Current Medications Medications (Trade) Dose Ordered Sig/Alicia Route PRN Reason Start Time Stop Time Status Last Admin Dose Admin Acetaminophen (Tylenol) 500 mg Q6HR PRN ORAL Mild Pain (Pain Scale 1-3) 11/20/19 22:15 12/20/19 22:14 Barium Sulfate (Varibar Honey) 250 ml NOW PRN MC RAD 11/21/19 15:30 11/24/19 15:18 Barium Sulfate (Varibar [place]) 240 ml NOW PRN MC RAD 11/21/19 15:30 11/24/19 15:18 Barium Sulfate (Varibar Pudding) 230 ml NOW PRN MC RAD 11/21/19 15:30 11/24/19 15:18 Barium Sulfate (Varibar Thin Liquid powder) 148 gm NOW PRN MC RAD 11/21/19 15:30 11/24/19 15:18 Diphenhydramine HCl (Benadryl) 50 mg ONCE IM 11/22/19 21:00 11/22/19 23:00 11/22/19 21:03 Haloperidol Lactate (Haldol) 10 mg Q8H PRN IM AGITATION 11/20/19 22:45 01/04/20 22:44 11/22/19 20:13 Levothyroxine Sodium (Synthroid) 150 mcg DAILY@0630 ORAL 11/23/19 06:30 12/23/19 06:29 Lorazepam (Ativan) 1 mg Q4HR PRN ORAL For Anxiety 11/20/19 22:15 11/27/19 22:14 11/21/19 08:51 Nicotine (Nicoderm) 1 patch Q24H TDERMAL 11/21/19 11:30 02/19/20 11:29 11/22/19 11:19 Risperidone (RisperDAL) 2 mg BEDTIME ORAL 11/21/19 21:00 01/05/20 20:59 11/22/19 20:57 Sodium Chloride 1,000 ml @ 60 mls/hr [id number] IV 11/20/19 22:15 12/20/19 22:14 11/20/19 22:40 Allergies: Coded Allergies: UNABLE TO ASSESS (Unverified , 11/20/19) Objective Data Height (Feet): 5 Height (Inches): 5.00 Weight (Pounds): 140 Additional Comments: alert, disoriented. Mood is agitated. Affect is flat. Thought process is disorganized. Thought content is significant for delusional thoughts. Cognition is impaired. Insight and judgment impaired. Assessment/Plan Status: progressing Assessment/Plan: ASSESSMENT: [place] I Schizophrenia. [place] II Deferred. [place] III As above. [place] IV Homelessness. [place] V 20. PLAN: 1. We will start patient on risperidone. 2. Ativan p.r.n. 3. Haldol decanoate. 4. Discussed with the nurse. Laureen Nesbitt MD Nov 22, 2019 21:35
[2019-11-23 06:00] VITALS: BP 116/71
[2019-11-23 08:00] VITALS: BP 121/76
--- NOTE | 2019-11-23 09:45 | General Progress Note ---
Assessment/Plan Assessment/Plan: (1) Peripheral Neuropathy Patient will be continued on Tylenol D/w Dr. Harper and he concurred. Subjective Date patient seen: Nov 23, 2019 Time patient seen: 08:30 - am Allergies: Coded Allergies: UNABLE TO ASSESS (Unverified , 11/20/19) Subjective REVIEW OF SYSTEMS: HEENT: Denies headaches. RESPIRATORY: Denies shortness of breath. Denies cough. CARDIOVASCULAR: Denies chest pain. Denies nausea, vomiting, or diarrhea. EXTREMITIES: Denies pain. CENTRAL NERVOUS SYSTEM: Denies changes in speech pattern. SUBJECTIVE: Patient is in bed no signs of pain, still has confusion due to psych issues being seen by Psychiatrist. Objective Last 24 Hour Vital Signs Date Time Temp Pulse Resp B/P (MAP) Pulse Ox O2 Delivery O2 Flow Rate FiO2 11/23/19 09:00 Room Air 11/23/19 08:00 98.3 85 19 121/76 (91) 98 11/23/19 06:00 97.7 76 18 116/71 (86) 98 11/22/19 21:00 Room Air 11/22/19 20:30 98.1 65 18 128/78 (95) 98 11/22/19 16:00 98.0 72 20 125/85 (98) 100 11/22/19 12:00 97.8 74 18 129/69 (89) 98 Intake and Output 11/22/19 11/23/19 19:00 07:00 Intake Total 560 ml 450 ml Balance 560 ml 450 ml Intake Oral 560 ml 450 ml # Voids 3 2 Height (Feet): 5 Height (Inches): 5.00 Weight (Pounds): 140 Objective HEENT: PERRLA. NECK: Supple. No lymphadenopathy. CHEST: Clear to auscultation. CARDIOVASCULAR: Regular rate and rhythm. No murmurs or extra sounds. GASTROINTESTINAL: Soft, nontender, nondistended. No organomegaly. EXTREMITIES: No edema. Moves all four extremities. Sensory intact. Reflexes on both sides. Oriented x2 Raheel Blanchard Nov 23, 2019 09:45
--- NOTE | 2019-11-23 10:50 | Infectious Diseases Prog Note ---
Assessment/Plan Assessment/Plan IMPRESSION: Abnormal chest x-ray, COPD. The patient does not look septic. Nicotine dependence Multiple abrasions on both hands Hypothyroidism, Hypoglycemia. RECOMMENDATION: Continue nicotine patch. Continue Levothyroxine Agree with discharge Subjective ROS Limited/Unobtainable: Yes Allergies: Coded Allergies: UNABLE TO ASSESS (Unverified , 11/20/19) Objective Last 24 Hour Vital Signs Date Time Temp Pulse Resp B/P (MAP) Pulse Ox O2 Delivery O2 Flow Rate FiO2 11/23/19 09:00 Room Air 11/23/19 08:00 98.3 85 19 121/76 (91) 98 11/23/19 06:00 97.7 76 18 116/71 (86) 98 11/22/19 21:00 Room Air 11/22/19 20:30 98.1 65 18 128/78 (95) 98 11/22/19 16:00 98.0 72 20 125/85 (98) 100 11/22/19 12:00 97.8 74 18 129/69 (89) 98 Height (Feet): 5 Height (Inches): 5.00 Weight (Pounds): 140 General Appearance: no acute distress HEENT: mucous membranes moist Respiratory/Chest: lungs clear Cardiovascular: normal rate Abdomen: soft, non tender Extremities: no edema Skin: other - skin abrasions of hands Neurologic/Psychiatric: other - sleeping Microbiology Date/Time Source Procedure Growth Status 11/20/19 20:33 Nasal Nares MRSA Culture - Final NO METHICILLIN RESISTANT STAPH AUREUS... Complete 11/20/19 18:39 Nasopharynx SARS-CoV-2 RdRp Gene Assay - Final Complete 11/20/19 20:33 Rectum Received Current Medications Medications (Trade) Dose Ordered Sig/Alicia Route PRN Reason Start Time Stop Time Status Last Admin Dose Admin Acetaminophen (Tylenol) 500 mg Q6HR PRN ORAL Mild Pain (Pain Scale 1-3) 11/20/19 22:15 12/20/19 22:14 Barium Sulfate (Varibar [place]) 250 ml NOW PRN MC RAD 11/21/19 15:30 11/24/19 15:18 Barium Sulfate (Varibar [place]) 240 ml NOW PRN MC RAD 11/21/19 15:30 11/24/19 15:18 Barium Sulfate (Varibar [place]ud[place]) 230 ml NOW PRN MC RAD 11/21/19 15:30 11/24/19 15:18 Barium Sulfate (Varibar Thin Liquid powder) 148 gm NOW PRN MC RAD 11/21/19 15:30 11/24/19 15:18 Haloperidol Lactate (Haldol) 10 mg Q8H PRN IM AGITATION 11/20/19 22:45 01/04/20 22:44 11/22/19 20:13 Levothyroxine Sodium (Synthroid) 150 mcg DAILY@0630 ORAL 11/23/19 06:30 12/23/19 06:29 11/23/19 06:06 Lorazepam (Ativan) 1 mg Q4HR PRN ORAL For Anxiety 11/20/19 22:15 11/27/19 22:14 11/21/19 08:51 Nicotine (Nicoderm) 1 patch Q24H TDERMAL 11/21/19 11:30 02/19/20 11:29 11/22/19 11:19 Risperidone (RisperDAL) 2 mg BID ORAL 11/23/19 09:00 01/07/20 08:59 11/23/19 08:22 Sodium Chloride 1,000 ml @ 60 mls/hr [id number] IV 11/20/19 22:15 12/20/19 22:14 11/20/19 22:40 Murray Duncan MD Nov 23, 2019 10:50
--- NOTE | 2019-11-23 11:14 | Pulmonology Progress Note ---
Subjective ROS Limited/Unobtainable: Yes Interval Events: None new Constitutional: Reports: no symptoms HEENT: Repors: no symptoms Respiratory: Reports: no symptoms Cardiovascular: Reports: no symptoms Gastrointestinal/Abdominal: Reports: no symptoms Neurologic: Reports: no symptoms Allergies: Coded Allergies: UNABLE TO ASSESS (Unverified , 11/20/19) Objective Last 24 Hour Vital Signs Date Time Temp Pulse Resp B/P (MAP) Pulse Ox O2 Delivery O2 Flow Rate FiO2 11/23/19 09:00 Room Air 11/23/19 08:00 98.3 85 19 121/76 (91) 98 11/23/19 06:00 97.7 76 18 116/71 (86) 98 11/22/19 21:00 Room Air 11/22/19 20:30 98.1 65 18 128/78 (95) 98 11/22/19 16:00 98.0 72 20 125/85 (98) 100 11/22/19 12:00 97.8 74 18 129/69 (89) 98 Intake and Output 11/22/19 11/23/19 18:59 06:59 Intake Total 560 ml 450 ml Balance 560 ml 450 ml Intake Oral 560 ml 450 ml # Voids 3 2 General Appearance: no acute distress HEENT: normocephalic Respiratory: chest wall non-tender, lungs clear Cardiovascular: normal peripheral pulses, normal rate Abdomen: normal bowel sounds Microbiology Date/Time Source Procedure Growth Status 11/20/19 20:33 Nasal Nares MRSA Culture - Final NO METHICILLIN RESISTANT STAPH AUREUS... Complete 11/20/19 18:39 Nasopharynx SARS-CoV-2 RdRp Gene Assay - Final Complete 11/20/19 20:33 Rectum Received Current Medications Medications (Trade) Dose Ordered Sig/Alicia Route PRN Reason Start Time Stop Time Status Last Admin Dose Admin Acetaminophen (Tylenol) 500 mg Q6HR PRN ORAL Mild Pain (Pain Scale 1-3) 11/20/19 22:15 12/20/19 22:14 Barium Sulfate (Varibar [place]) 250 ml NOW PRN MC RAD 11/21/19 15:30 11/24/19 15:18 Barium Sulfate (Varibar [place]) 240 ml NOW PRN MC RAD 11/21/19 15:30 11/24/19 15:18 Barium Sulfate (Varibar [place]ud[place]) 230 ml NOW PRN MC RAD 11/21/19 15:30 11/24/19 15:18 Barium Sulfate (Varibar Thin Liquid powder) 148 gm NOW PRN MC RAD 11/21/19 15:30 11/24/19 15:18 Haloperidol Lactate (Haldol) 10 mg Q8H PRN IM AGITATION 11/20/19 22:45 01/04/20 22:44 11/22/19 20:13 Levothyroxine Sodium (Synthroid) 150 mcg DAILY@0630 ORAL 11/23/19 06:30 12/23/19 06:29 11/23/19 06:06 Lorazepam (Ativan) 1 mg Q4HR PRN ORAL For Anxiety 11/20/19 22:15 11/27/19 22:14 11/21/19 08:51 Nicotine (Nicoderm) 1 patch Q24H TDERMAL 11/21/19 11:30 02/19/20 11:29 11/22/19 11:19 Risperidone (RisperDAL) 2 mg BID ORAL 11/23/19 09:00 01/07/20 08:59 11/23/19 08:22 Sodium Chloride 1,000 ml @ 60 mls/hr [id number] IV 11/20/19 22:15 12/20/19 22:14 11/20/19 22:40 Assessment/Plan Assessment/Plan IMPRESSION: Abnormal chest x-ray, non-specific; do not suspect pneumonia Likely underlying COPD RECOMMENDATION: None from pulmonary standpoint Advised tobacco cessation Medically stable to discharge Jo Cohen Omar Syed MD Nov 23, 2019 11:14
--- NOTE | 2019-11-23 22:48 | Psych Consult Progress Note ---
Psychiatry Progress Note Psychiatry Progress Note Subjective the pt was agitated and confused the pt lacks capacity to make decisions. and should not leave ama/ the pt is delusional Neurological/Psychiatric: Reports: anxiety, depressed, emotional problems Allergies: Coded Allergies: UNABLE TO ASSESS (Unverified , 11/20/19) Objective Data Height (Feet): 5 Height (Inches): 5.00 Weight (Pounds): 140 Additional Comments: alert, disoriented. Mood is agitated. Affect is flat. Thought process is disorganized. Thought content is significant for delusional thoughts. Cognition is impaired. Insight and judgment impaired. Assessment/Plan [place] I: ASSESSMENT: [place] I Schizophrenia. [place] II Deferred. [place] III As above. [place] IV Homelessness. [place] V 20. PLAN: 1. We will start patient on risperidone. 2. Ativan p.r.n. 3. Haldol decanoate. 4. Discussed with the nurse. Status Narrative ASSESSMENT: [place] I Schizophrenia. [place] II Deferred. [place] III As above. [place] IV Homelessness. [place] V 20. PLAN: 1. We will start patient on risperidone. 2. Ativan p.r.n. 3. Haldol decanoate. 4. Discussed with the nurse. Assessment/Plan: ASSESSMENT: [place] I Schizophrenia. [place] II Deferred. [place] III As above. [place] IV Homelessness. [place] V 20. PLAN: 1. We will start patient on risperidone. 2. Ativan p.r.n. 3. Haldol decanoate. 4. Discussed with the nurse. Laureen Nesbitt MD Nov 23, 2019 22:48
--- NOTE | 2019-11-25 15:57 | Discharge Summary ---
Discharge Summary Discharge Summary _ DATE OF ADMISSION: 11/20/2019 DATE OF DISCHARGE: 11/23/2019 DISCHARGED BY: Dr. Anselmo Bryan CONSULTANTS: Dr. Laureen Harper [facility]SE: The patient is a 39-year-old female, who presented to the emergency department brought by ambulance accompanied by police department as patient is on 5150 hold for danger to others. EMS was called on scene due to altered mental status. She was banging on the doors and having delusional thoughts. Per police department, patient fixated on a set of keys and attempted to take the piece of on belts. She initially gave several names. She presented to ED aspirin dose. She had ecchymosis around the right orbital area. Patient was having flight of ideas and incoherent speech. She was not following commands. Her vital signs were stable upon arrival to ED. Blood work did not show any leukocytosis. Hemoglobin and hematocrit were stable. Sodium level 134. Potassium level 3.4. BUN 9 and creatinine 1.2. UCG negative. Urine toxicology screen was positive for marijuana. Serum alcohol and acetaminophen negative. EKG was in sinus rhythm. Chest x-ray showed questionable mild interstitial congestion. Head CT was negative. Facial bone CT did not show any evidence of acute bony trauma. She was given 1 L IV bolus. She was treated empirically with IV Levaquin. Rapid COVID test was negative. She was admitted for evaluation of pneumonia and behavioral disorder. Infectious diseases specialist, and mower mechanic were consulted. Chest x-ray findings more from COPD. She was observed off antibiotics. She was encouraged cessation from smoking. She was given nicotine patch. Psychiatrist was consulted. Patient was given cocktail due to aggressive behavior and agitation. Patient was alert but disoriented. Mood is agitated. Thought process disorganized. Thought content is delusional. She was started on risperidone. She was given Ativan and Haldol as needed. Patient has history of thyroid CA status post thyroidectomy. TSH was markedly elevated. She was started on levothyroxine. She complained of generalized body pain. Pain management was consulted. She was given Tylenol. The patient did not look septic. Patient is stable from pulmonary standpoint. There was no leukocytosis. She was afebrile. Patient was cleared for discharge. FINAL DIAGNOSES: Abnormal chest x-ray, nonspecific, likely from COPD Nicotine dependence Schizophrenia Multiple abrasions on both hands, present on admission Hypothyroidism Hypoglycemia DISPOSITION: The treating physician has assessed that the patient is medically stable for discharge to an outstretched disposition. DISCHARGE MEDICATIONS: None DISCHARGE INSTRUCTIONS: Follow-up in a week. I have been assigned to complete a discharge summary on this account, I was not involved with the patient's management.--TYSON Goldsmith Jacqueline Robles NP Nov 25, 2019 15:57
== END 2019-11-23 12:50 | disposition other institution (70) | DRG 886 ==
LOC: EDBD 12:58 → EMR 13:05 → 3E 19:50 → EDBEDREQ 20:26 → 3E 21:10
DX: F91.9 Conduct disorder, unspecified (principal); R45.1 Restlessness and agitation; Z59.0 Homelessness; F20.9 Schizophrenia, unspecified; J44.9 Chronic obstructive pulmonary disease, unspecified; S60.512A Abrasion of left hand, initial encounter; S60.511A Abrasion of right hand, initial encounter; X58.XXXA Exposure to other specified factors, initial encounter; E89.0 Postprocedural hypothyroidism; E16.2 Hypoglycemia, unspecified; Z85.850 Personal history of malignant neoplasm of thyroid; Z88.0 Allergy status to penicillin; F17.200 Nicotine dependence, unspecified, uncomplicated; G62.9 Polyneuropathy, unspecified
CPT/HCPCS: 36415; 70450; 70486; 71045; 80053; 80307; 81025; 83880; 84443; 85025; 87081; 93005; 96361; 96365; 99285; G0480; J7030; U0002

== ENCOUNTER 2019-11-24 22:36 | Inpatient (IN) | payer MEDICARE, OTHER ==
[~2019-11-24] VITALS: Ht 162.6 cm; Wt 64.6 kg
[2019-11-24 22:53] VITALS: BP 125/89
--- NOTE | 2019-11-24 22:53 | NUR ---
ED Nurse Note: pt ambulated into ed from home requesting "thyroid work up". Pt states that she has recent onset of confusion x 3 months. pt aao x 4, ambulates with steady gait, VSS no ss of distress noted, skin intact. ERMD at bedside. Will continue to monitor. Awaiting further orders. Pt placed in gown in bed.
--- NOTE | 2019-11-24 23:05 | NUR ---
ED Nurse Note: BILINGUAL SECRETARY at bedside for EKG
[2019-11-24] MEDS ORDERED: Haloperidol 5mg/ml Inj IM ONE (23:15)
--- NOTE | 2019-11-24 23:15 | Emergency Room Report ---
History of Present Illness General Chief Complaint: General Complaint Source: Patient Present Illness HPI 39-year-old female with history of hypothyroidism secondary to thyroidectomy several years ago for thyroid cancer, homelessness, schizophrenia not compliant with medications, here with altered mental status. The patient was admitted to the hospital several days ago and left AGAINST MEDICAL ADVICE yesterday. She was admitted at that time for pneumonia requiring Levaquin, hypothyroidism on Synthroid, and for psychiatric evaluation. When asked the patient why she left AGAINST MEDICAL ADVICE she said "I do not know. I do not really remember." Patient has been living on the streets. When asked the patient what brought her back to the emergency room she said "I do not know, but there is a QR code on my hand. I saw it. They have have been scanning me." Denies drug use, alcohol use, homicidal or suicidal ideation. Denies headaches, vision changes, fevers, chills, chest pain, palpitations, shortness of breath, back pain, abdominal pain, nausea, vomiting, diarrhea, dysuria. Allergies: Coded Allergies: LATEX (Verified Allergy, Unknown, 11/24/19) PENICILLINS (Verified Allergy, Unknown, 11/24/19) Uncoded Allergies: PENICILLIN (Allergy, Unknown, 11/24/19) COVID-19 Screening Contact w/high risk pt: No Experienced COVID-19 symptoms?: No COVID-19 Testing performed ION IMPLANT MACHINE OPERATOR: No Patient History Now: No Review of Systems All Other Systems: negative except mentioned in HPI Physical Exam Vital Signs Date Time Temp Pulse Resp B/P (MAP) Pulse Ox O2 Delivery O2 Flow Rate FiO2 11/24/19 22:43 98.2 82 16 125/89 (101) 96 Room Air Sp02 EP Interpretation: reviewed, normal General Appearance: no apparent distress, alert, GCS 15, non-toxic, other - Appears disheveled Head: normocephalic, atraumatic Eyes: bilateral eye normal inspection, bilateral eye PERRL ENT: hearing grossly normal, normal pharynx, no angioedema, normal voice Neck: full range of motion, supple/symm/no masses, other - Well-healed old appearing thyroidectomy scar Respiratory: chest non-tender, lungs clear, normal breath sounds, speaking full sentences Cardiovascular #1: regular rate, rhythm, no edema Cardiovascular #2: 2+ carotid (R), 2+ carotid (L), 2+ radial (R), 2+ radial (L) , 2+ dorsalis pedis (R), 2+ dorsalis pedis (L) Gastrointestinal: normal bowel sounds, non tender, soft, non-distended, no guarding, no rebound Rectal: deferred Genitourinary: normal inspection, no CVA tenderness Musculoskeletal: back normal, normal range of motion, calf tenderness, gait/ station normal, non-tender Neurologic: alert, motor strength/tone normal, oriented x3, sensory intact, responsive, speech normal Psychiatric: judgement/insight normal, memory normal, mood/affect normal, no suicidal/homicidal ideation Skin: other - Multiple small abrasions on the upper and lower extremities bilaterally without any evidence of drainage or induration or surrounding erythema Lymphatic: no adenopathy Medical Decision Making Diagnostic Impression: Primary Impression: Psychosis Additional Impressions: Alteration consciousness Delusions Hypothyroidism ER Course Laboratory Tests Test 11/24/19 23:38 White Blood Count 7.7 K/UL (4.8-10.8) Red Blood Count 3.96 M/UL (4.20-5.40) L Hemoglobin 12.9 G/DL (12.0-16.0) Hematocrit 34.7 % (37.0-47.0) L Mean Corpuscular Volume 88 FL (80-99) Mean Corpuscular Hemoglobin 32.5 PG (27.0-31.0) H Mean Corpuscular Hemoglobin Concent 37.1 G/DL (32.0-36.0) H Red Cell Distribution Width 14.4 % (11.6-14.8) Platelet Count 227 K/UL (150-450) Mean Platelet Volume 7.2 FL (6.5-10.1) Neutrophils (%) (Auto) 50.8 % (45.0-75.0) Lymphocytes (%) (Auto) 41.3 % (20.0-45.0) Monocytes (%) (Auto) 4.5 % (1.0-10.0) Eosinophils (%) (Auto) 2.2 % (0.0-3.0) Basophils (%) (Auto) 1.2 % (0.0-2.0) Urine Color Pale yellow Urine Appearance Clear Urine pH 7 (4.5-8.0) Urine Specific [place] 1.010 (1.005-1.035) Urine Protein Negative (NEGATIVE) Urine Glucose (UA) Negative (NEGATIVE) Urine Ketones Negative (NEGATIVE) Urine Blood Negative (NEGATIVE) Urine Nitrite Negative (NEGATIVE) Urine Bilirubin Negative (NEGATIVE) Urine Urobilinogen Normal MG/DL (0.0-1.0) Urine Leukocyte Esterase 1+ (NEGATIVE) H Urine RBC 0-2 /HPF (0 - 2) Urine WBC 0-2 /HPF (0 - 2) Urine Squamous Epithelial Cells Moderate /LPF (NONE/OCC) H Urine Amorphous Sediment Few /LPF (NONE) H Urine Bacteria Few /HPF (NONE) Urine HCG, Qualitative Negative (NEGATIVE) Sodium Level 139 MMOL/L (136-145) Potassium Level 3.6 MMOL/L (3.5-5.1) Chloride Level 101 MMOL/L (98-107) Carbon Dioxide Level 30 MMOL/L (21-32) Anion Gap 8 mmol/L (5-15) Blood Urea Nitrogen 8 mg/dL (7-18) Creatinine 1.0 MG/DL (0.55-1.30) Estimated Glomerular Filtration Rate > 60 mL/min (>60) Glucose Level 92 MG/DL (74-106) Lactic Acid Level 1.30 mmol/L (0.4-2.0) Calcium Level 9.2 MG/DL (8.5-10.1) Total Bilirubin 0.5 MG/DL (0.2-1.0) Aspartate Amino Transferase (AST) 60 U/L (15-37) H Alanine Aminotransferase (ALT) 57 U/L (12-78) Alkaline Phosphatase 65 U/L (46-116) Troponin I 0.000 ng/mL (0.000-0.056) Total Protein 7.0 G/DL (6.4-8.2) Albumin 3.8 G/DL (3.4-5.0) Globulin 3.2 g/dL Albumin/Globulin Ratio 1.2 (1.0-2.7) Thyroid Stimulating Hormone (TSH) 107.656 uiU/mL (0.358-3.740) Salicylates Level 2.5 ug/mL (2.8-20) L Urine Opiates Screen Negative (NEGATIVE) Acetaminophen Level < 2 MCG/ML (10-30) L Urine Barbiturates Screen Negative (NEGATIVE) Phencyclidine (PCP) Screen Negative (NEGATIVE) Urine Amphetamines Screen Negative (NEGATIVE) Urine Benzodiazepines Screen Negative (NEGATIVE) Urine Cocaine Screen Negative (NEGATIVE) Urine Marijuana (THC) Screen Positive (NEGATIVE) H Serum Alcohol < 3 mg/dL Total critical care time: Approximately 20 minutes Due to a high probability of clinically significant, life threatening deterioration, the patient required the highest level of preparedness to intervene emergently and I personally spent this critical care time directly and personally managing the patient. This critical care time included obtaining a history, examining the patient, pulse oximetry, ordering and reviewing studies , ordering treatments, evaluating response to treatment and updating management plan as needed, frequent reassessment and discussion with other providers as well as arranging for ultimate disposition. This critical to care time was performed to assess and manage the high probability of life-threatening deterioration that could result in multiorgan failure. This critical care time is separate from the separately billable procedures and treating other patients. EK bpm, normal sinus rhythm. Normal axis. No ectopy. No obvious ST or T wave abnormalities 39-year-old female with history of psychosis and hypothyroidism here with altered mental status. Patient recently left him AGAINST MEDICAL ADVICE from the hospital 2 days ago. At that time she was being treated for a pneumonia as well as for hypothyroidism. Chest x-ray today was unremarkable. In the emergency department she was hemodynamically stable and her exam was unremarkable aside from her making multiple delusional statements such as " there is a QR code on my hand" and "they are scanning me. I know what." Patient was unable to elaborate further. TSH was highly elevated at greater than 100. Patient was given her 150 mcg of Synthroid that she had been taking while admitted in the hospital. She has been noncompliant with her antipsychotics. Was given 5 mg of Haldol intramuscularly. Admitted to [facility] in stable condition. Last Vital Signs Date Time Temp Pulse Resp B/P (MAP) Pulse Ox O2 Delivery O2 Flow Rate FiO2 11/24/19 22:43 98.2 82 16 125/89 (101) 96 Room Air Scripts Unable to Obtain Active Prescriptions or Reported Meds Referrals: NOT CHOSEN IPA/,REFERRING (PCP) Rene Mclaughlin M.D. Nov 24, 2019 23:15
--- NOTE | 2019-11-24 23:15 | NUR ---
ED Nurse Note: all blood work and urine sent to lab. All medications adminsitered, pt tolerated well no ss of distress noted. will continue to monitor.
--- NOTE | 2019-11-24 23:40 | NUR ---
ED Nurse Note: xray at bedside
[2019-11-25 00:18] LABS: BASOPHILS % (AUTO) 1.2 % (0.0-2.0); EOSINOPHILS % (AUTO) 2.2 % (0.0-3.0); HEMATOCRIT 34.7 % (37.0-47.0); HEMOGLOBIN 12.9 G/DL (12.0-16.0); LYMPHOCYTES % (AUTO) 41.3 % (20.0-45.0); MEAN CORPUSCULAR VOLUME 88 FL (80-99); MONOCYTES % (AUTO) 4.5 % (1.0-10.0); NEUTROPHILS % (AUTO) 50.8 % (45.0-75.0); PLATELET COUNT 227 K/UL (150-450); RED BLOOD COUNT 3.96 M/UL (4.20-5.40); RED CELL DISTRIBUTION WIDTH 14.4 % (11.6-14.8); WHITE BLOOD COUNT 7.7 K/UL (4.8-10.8)
[2019-11-25 00:19] LABS: APPEARANCE,URINE CLEAR; BILIRUBIN, URINE NEGATIVE (NEGATIVE); COLOR,URINE PALE YELLOW; GLUCOSE, URINE (UA) NEGATIVE (NEGATIVE); KETONES,URINE NEGATIVE (NEGATIVE); LEUKOCYTE ESTERASE ,URINE 1+ (NEGATIVE); NITRITE,URINE NEGATIVE (NEGATIVE); PH,URINE 7 (4.5-8.0); PROTEIN,URINE NEGATIVE (NEGATIVE); UROBILINOGEN,URINE NORMAL MG/DL (0.0-1.0)
--- NOTE | 2019-11-25 00:21 | Diagnostic Imaging Report ---
EXAM: XR Chest, 1 View CLINICAL HISTORY: AMS TECHNIQUE: Frontal view of the chest. COMPARISON: 11/20/2019. FINDINGS: Lungs: The lungs are well aerated. No consolidative change or pleural effusion. Pleural space: No pneumothorax. Heart: Cardiomediastinal silhouette unremarkable. Mediastinum: See above. Bones/joints: Osteopenia. IMPRESSION: No active disease, unchanged. Osteopenia.
[2019-11-25 00:29] LABS: ANION GAP 8 mmol/L (5-15); BLOOD UREA NITROGEN 8 mg/dL (7-18); CALCIUM 9.2 MG/DL (8.5-10.1); CARBON DIOXIDE 30 MMOL/L (21-32); CHLORIDE 101 MMOL/L (98-107); POTASSIUM 3.6 MMOL/L (3.5-5.1); SODIUM 139 MMOL/L (136-145)
[2019-11-25 00:41] LABS: ALANINE AMINOTRANSFERASE 57 U/L (12-78); ALBUMIN 3.8 G/DL (3.4-5.0); ALBUMIN/GLOBULIN RATIO 1.2 (1.0-2.7); ALKALINE PHOSPHATASE 65 U/L (46-116); ASPARTATE AMINO TRANSFERASE 60 U/L (15-37); BILIRUBIN,TOTAL 0.5 MG/DL (0.2-1.0)
--- NOTE | 2019-11-25 00:49 | NUR ---
ED Nurse Note: REPORT GIVEN TO ALPESH BOTELLO ON MS UNIT
--- NOTE | 2019-11-25 00:49 | NUR ---
NURSE NOTES: Received telephone report from ALPESH Perdomo. Patient will be up to the floor soon.
[2019-11-25 00:54] VITALS: BP 115/78
--- NOTE | 2019-11-25 01:11 | NUR ---
ED Nurse Note: all medications administered, pt tolerated well no ss of distress noted. will continue to monitor.
[2019-11-25 01:15] VITALS: BP 124/86
--- NOTE | 2019-11-25 01:15 | NUR ---
ER DISCHARGE NOTE: Patient is cleared to be discharged to MS unit per ERMD, pt is aox4, on room air, with stable vital signs. pt was able to verbalize understanding. pt is able to ambulate with steady gait. pt took all belongings. Report given to ALPESH Cotter on ms unit. Pt transferred to unit via wheelchair with 1 TALENT ADVISOR.
--- NOTE | 2019-11-25 01:15 | NUR ---
NURSE NOTES: Patient alert and oriented x 3. Patient with no c/o pain and no s/s of acute distress. Vital signs stable. Belongings reconciled. No home meds. Patient oriented to hospital room and facility. Skin check done with 2nd RN, multiple abrasions found on hands bilat but skin is intact. Sunburns found on the back. Will call for orders.
[2019-11-25 04:00] VITALS: BP 117/74
--- NOTE | 2019-11-25 05:45 | NUR ---
2nd call to Dr. Morgan at 0300 and 3rd call at 0330 for admission orders. Charge nurse notified. Received orders from Dr. Morgan at 0545 and will enter orders
--- NOTE | 2019-11-25 07:22 | NUR ---
NURSE HAND-OFF: Important Events on Shift:New admit Patient Status: stable Diet: mechanical soft Pending Orders: NA Pending Results/Labs:NA Pending MD notification:NA Latest Vital Signs: Temperature 98.6 , Pulse 71 , B/P 117 /74 , Respiratory Rate 14 , O2 SAT 98 , Room Air, O2 Flow Rate . Vital Sign Comment: stable throughout shift Latest Grubbs Fall Score: 35 Fall Risk: Medium Risk Safety Measures: Call light Within Reach, Bed Alarm , Side Rails Side Rails x2, Bed position Low and Locked. Fall Precautions: Patient Fall Education Report given to ALPESH Najera.
--- NOTE | 2019-11-25 07:54 | NUR ---
NURSE NOTES: Received report from Albertina BETTS, pt a/a/o seating in chair eating breakfast with no signs of distress or other issues at this time. IV on the left upper arm gauge #22 HP. call light within reach, bed in lowest position. side rales up x2. I will f/u as needed.
[2019-11-25 08:00] VITALS: BP 104/60
[2019-11-25 12:00] VITALS: BP 117/76
[2019-11-25] MEDS ORDERED: LORazepam Inj 2mg/ml 1ml IM PRN (13:15)
[2019-11-25] MEDS ORDERED: Haloperidol 5mg/ml Inj IM PRN (13:15)
--- NOTE | 2019-11-25 15:22 | NUR ---
DISCHARGE PLANNING PATIENT HAS BEEN REFERRED TO [facility] P: [phone] F: [phone]
[2019-11-25] MEDS ORDERED: ACETAMINOPHEN325 M1 ORAL (15:25)
[2019-11-25] MEDS ORDERED: NICOTINE PATCH1 EAC5 TD (15:29)
--- NOTE | 2019-11-25 15:35 | NUR ---
NURSE NOTES: Handoff received from Dania BETTS. Patient is asleep, no signs of distress noted. Breathing is even and unlabored on room air. Patient's IV is intact and asymptomatic, saline locked. Bed is low and locked, bed alarm is on, side rails up x2, call light is within reach.
--- NOTE | 2019-11-25 15:47 | NUR ---
CASE MANAGEMENT:INITIAL REVIEW 39 YR OLD FEMALE WALKED IN TO ED FROM THE STREET CC;GENERAL COMPLAINT SI;ALTERED MENTAL STATUS. PSYCHOSIS. 98.2 82 16 125/89 96% ON RA AST 60 TSH 107.656 UA+ LEUKOCYTE ESTERASE, SQUAMOUS EPITH CELLS, AMORPHOUS SEDIMENT URINE TOX (+) THC. SALICYLATES 2.5 CXR ~ No active disease, unchanged. Osteopenia. IS;HALDOL IM ONCE SYNTHROID PO ONCE ATIVAN IM ONCE ADMITTED TO MED SURG MED SURG STATUS DCP;PATIENT IS HOMELESS
--- NOTE | 2019-11-25 15:51 | NUR ---
HAND-OFF: Report given to David BETTS, pt in stable condition. - Haldon and Ativan given x1 for agitation. - per Dr. Nesbitt to transfer patient to a [facility] Psych unit. case mgr Kaya is aware and will work on the transfer. - pt is able to ambulate with staff assistance.Report given to
--- NOTE | 2019-11-25 19:19 | NUR ---
NURSE HAND-OFF: Important Events on Shift:[Haldol and ativan for agitation] Patient Status: stable Diet: regular Pending Orders: discharge Pending Results/Labs: Pending MD notification: Latest Vital Signs: Temperature 98.6 , Pulse 66 , B/P 104 /60 , Respiratory Rate 14 , O2 SAT 98 , Room Air, O2 Flow Rate . Vital Sign Comment: Latest Grubbs Fall Score: 35 Fall Risk: Medium Risk Safety Measures: Call light Within Reach, Bed Alarm Zone 1, Side Rails Side Rails x2, Bed position Low and Locked. Fall Precautions: Yellow Socks Yellow Gown Door Sign Patient Fall Education Report given to Zenia BETTS.
--- NOTE | 2019-11-25 19:20 | NUR ---
NURSE NOTES: Received report from ALPESH Hernandez. Rounds done, patient asleep. Respirations even and unlabored. Bed in low position, locked, alarms on, call light within reach. Will continue to monitor.
[2019-11-26] VITALS (8 sets, daily range): BP systolic 11–131; BP diastolic 71–90
--- NOTE | 2019-11-26 02:40 | NUR ---
NURSE NOTES: Dr Russell here to see patient, covering for Dr Mendoza. Orders received and carried out.
--- NOTE | 2019-11-26 03:29 | History and Physical Report ---
DATE OF ADMISSION: 11/24/2019 HISTORY OF PRESENT ILLNESS: The patient is again readmitted with altered mental status, psychosis, hallucination. The patient is a major psychiatric patient. The patient also is found to have severely elevated TSH of 107. She is actively psychotic and delusional, keeps saying that people are scanning her mind. Poor historian, cannot get any reliable history from the patient. PAST MEDICAL HISTORY: Schizophrenia, paranoia type, hypothyroidism, and anxiety. PAST SURGICAL HISTORY: Denies. ALLERGIES: Latex and penicillin. MEDICATIONS: None. FAMILY HISTORY: Noncontributory. SOCIAL HISTORY: The patient smokes. Denies drug or alcohol abuse. REVIEW OF SYSTEMS: HEENT: Denies headaches. RESPIRATORY: Denies shortness of breath. Denies cough. CARDIOVASCULAR: Denies chest pain. Denies nausea, vomiting, or diarrhea. EXTREMITIES: Denies pain. CENTRAL NERVOUS SYSTEM: Denies changes in speech pattern. She is a poor historian. PHYSICAL EXAMINATION: VITAL SIGNS: Temperature is 98.9, pulse is 76, blood pressure 170/76. HEENT: PERRLA. NECK: Supple. No lymphadenopathy. CHEST: Clear to auscultation. CARDIOVASCULAR: Regular rate and rhythm. No murmurs or extra sounds. GASTROINTESTINAL: Soft, nontender, nondistended. No organomegaly. EXTREMITIES: No edema. Moves all four extremities. NEUROLOGIC: Sensory intact. Reflexes on both sides . The patient is oriented x1 and hallucinating. LABORATORY DATA: WBC of 7.7, hemoglobin of 12.9, platelets of 327. Sodium 139, potassium of 3.6. BUN of 8 and creatinine of 1. Glucose of 92. TSH of 107.6. ASSESSMENT AND PLAN: Altered mental status, paranoid schizophrenia, hallucination, and hypothyroidism. I have consulted Dr. Nesbitt, Dr. Mendoza, Dr. Murray Duncan, and to see if the patient has any infectious etiology as well as further management and further management of active psychosis. Anselmo Morgan M.D. DR: JAVI JOB#: [id number] CC:
--- NOTE | 2019-11-26 07:06 | General Progress Note ---
Assessment/Plan Problem List: (1) Hypothyroidism ICD Codes: E03.9 - Hypothyroidism, unspecified SNOMED: 98026721 (2) Delusions ICD Codes: F22 - Delusional disorders SNOMED: 0885402 Assessment/Plan: continue LT4 150 mcg daily repeat TSH, free T4 in 2 weeks Subjective ROS Limited/Unobtainable: Yes Allergies: Coded Allergies: LATEX (Verified Allergy, Unknown, 11/24/19) PENICILLINS (Verified Allergy, Unknown, 11/24/19) Uncoded Allergies: PENICILLIN (Allergy, Unknown, 11/24/19) Subjective events noted and interval notes reviewed evaluation by Dr Russell over the weekend Objective Last 24 Hour Vital Signs Date Time Temp Pulse Resp B/P (MAP) Pulse Ox O2 Delivery O2 Flow Rate FiO2 11/26/19 04:45 98.2 78 18 128/80 (96) 100 11/26/19 00:00 98.0 80 16 118/77 (91) 97 11/25/19 21:00 Room Air 11/25/19 14:18 66 14 104/60 98 11/25/19 13:48 66 14 104/60 98 11/25/19 12:00 98.6 76 14 117/76 (90) 98 11/25/19 09:00 Room Air 11/25/19 08:00 98.9 66 14 104/60 (75) 98 Intake and Output 11/25/19 11/26/19 19:00 07:00 Intake Total 800 ml 750 ml Balance 800 ml 750 ml Intake Oral 800 ml 750 ml # Voids 3 3 Height (Feet): 5 Height (Inches): 4.00 Weight (Pounds): 145 General Appearance: confused Neck: normal alignment Cardiovascular: normal rate Respiratory/Chest: decreased breath sounds Abdomen: normal bowel sounds Objective Current Medications Medications (Trade) Dose Ordered Sig/Alicia Route PRN Reason Start Time Stop Time Status Last Admin Dose Admin Acetaminophen (Tylenol) 650 mg Q4H PRN ORAL For Headache 11/25/19 14:00 12/25/19 13:59 Haloperidol Lactate (Haldol) 5 mg ONCE PRN IM AGITATION 11/25/19 13:15 01/09/20 13:14 11/25/19 13:49 Levothyroxine Sodium (Synthroid) 150 mcg DAILY@0630 ORAL 11/26/19 06:30 12/26/19 06:29 11/26/19 06:28 Lorazepam (Ativan 2mg/ml 1ml) 1 mg ONCE PRN IM AGITATION 11/25/19 13:15 12/02/19 13:14 11/25/19 13:48 Nicotine (Nicoderm) 1 patch Q24H TDERMAL 11/25/19 15:00 02/23/20 14:59 11/25/19 15:55 Rudy Mendoza MD Nov 26, 2019 07:06
--- NOTE | 2019-11-26 07:25 | NUR ---
NURSE HAND-OFF: Important Events on Shift: slept well, no distress, started taking Synthroid as ordered this AM Patient Status: stable, steady gait Diet: soft mechanical Pending Orders: Pending Results/Labs Pending MD notification: Latest Vital Signs: Temperature 98.2 , Pulse 78 , B/P 128 /80 , Respiratory Rate 18 , O2 SAT 100 , Room Air, O2 Flow Rate . Vital Sign Comment: Latest Grubbs Fall Score: 35 Fall Risk: Medium Risk Safety Measures: Call light Within Reach, Bed Alarm Zone 1, Side Rails Side Rails x2, Bed position Low and Locked. Fall Precautions: Yellow Socks Yellow Gown Door Sign Patient Fall Education Report given to ALPESH Najera
--- NOTE | 2019-11-26 08:00 | NUR ---
NURSE NOTES: Received report from Zenia BETTS, pt a/a/o x4 laying in bed with no signs of distress or other issues at this time. surgical dressing dry and intact. call light within reach, bed in lowest position. side rales up. I will f/u as needed. Addendum: 11/26/19 at 0829 by Dania Wheeler RN please discard this notes belong to a different patient.
--- NOTE | 2019-11-26 08:00 | NUR ---
NURSE NOTES: Received report from Zenia BETTS, pt a/a/o seating in chair eating breakfast. pt is able to tolerate her diet with no s/s of n/v. pt is able to ambulate around the room with staff supervision. call light within reach, bed in lowest position. side rales up x2. I will f/u as needed.
--- NOTE | 2019-11-26 10:48 | NUR ---
Social Work This SW received a consult due to homelessness. This Sw met with patient who appears alert/oriented, independent with all ADLs, ambulation and does not require any DME. Patient explains she receives SSI 1200 per month, but does not have an ID or access to her income (will need to follow up with Social Security for her income). This SW recommended Board and Care placement; patient is in agreement with placement. This SW contacted Amy at [phone] and faxed the chart information. Amy aware patient does not have access to her SSI at this time. Patient is pleasant and cooperative, willing to follow up with Amy to obtain her income. Patient will discharge to Board and Care to the following location (Amy asking to be called prior to meet her at this address: [facility] [address] [place] [phone] No other needs or concerns at this time. Patient appears to be coping and at baseline. Inpatient Psych declined patient due to patient does not require placement at this time, according to Case Management.
--- NOTE | 2019-11-26 12:08 | Infectious Diseases Prog Note ---
Assessment/Plan Assessment/Plan IMPRESSION: COPD. Nicotine dependence Multiple abrasions on both hands Hypothyroidism, Hypoglycemia. RECOMMENDATION: Continue nicotine patch. Continue Levothyroxine Subjective ROS Limited/Unobtainable: Yes Constitutional: Denies: fever Allergies: Coded Allergies: LATEX (Verified Allergy, Unknown, 11/24/19) PENICILLINS (Verified Allergy, Unknown, 11/24/19) Uncoded Allergies: PENICILLIN (Allergy, Unknown, 11/24/19) Objective Last 24 Hour Vital Signs Date Time Temp Pulse Resp B/P (MAP) Pulse Ox O2 Delivery O2 Flow Rate FiO2 11/26/19 08:00 97.4 74 18 122/80 (94) 99 11/26/19 04:45 98.2 78 18 128/80 (96) 100 11/26/19 00:00 98.0 80 16 118/77 (91) 97 11/25/19 21:00 Room Air 11/25/19 14:18 66 14 104/60 98 11/25/19 13:48 66 14 104/60 98 Height (Feet): 5 Height (Inches): 4.00 Weight (Pounds): 145 General Appearance: no acute distress HEENT: mucous membranes moist Respiratory/Chest: lungs clear Cardiovascular: normal rate Abdomen: soft, non tender Extremities: no edema Skin: other - healing hand scatches Neurologic/Psychiatric: other - sleeping Microbiology Date/Time Source Procedure Growth Status 11/25/19 00:45 Rectum Received Current Medications Medications (Trade) Dose Ordered Sig/Alicia Route PRN Reason Start Time Stop Time Status Last Admin Dose Admin Acetaminophen (Tylenol) 650 mg Q4H PRN ORAL For Headache 11/25/19 14:00 12/25/19 13:59 Haloperidol Lactate (Haldol) 5 mg ONCE PRN IM AGITATION 11/25/19 13:15 01/09/20 13:14 11/25/19 13:49 Levothyroxine Sodium (Synthroid) 150 mcg DAILY@0630 ORAL 11/26/19 06:30 12/26/19 06:29 11/26/19 06:28 Lorazepam (Ativan 2mg/ml 1ml) 1 mg ONCE PRN IM AGITATION 11/25/19 13:15 12/02/19 13:14 11/25/19 13:48 Nicotine (Nicoderm) 1 patch Q24H TDERMAL 11/25/19 15:00 02/23/20 14:59 11/25/19 15:55 Risperidone (RisperDAL) 2 mg Q12HR ORAL 11/26/19 10:30 01/10/20 10:29 11/26/19 11:30 Murray Duncan MD Nov 26, 2019 12:08
--- NOTE | 2019-11-26 17:50 | NUR ---
*-*DISCHARGE PLANNED*-* PATIENT HAS BEEN REFERRED TO [facility] P: [phone] FOR NURSE TO NURSE REPORT ROOM GIVEN UPON REPORT [facility] SET FOR 8:20PM [id number] S/W
[2019-11-26] MEDS ORDERED: LORazepam 1mg tab ORAL SCH (18:55)
--- NOTE | 2019-11-26 19:35 | NUR ---
HAND-OFF: Report given to Zenia BETTS. pt in stable condition. incoming is aware that needs to be given report to [facility] unit at [phone].
--- NOTE | 2019-11-26 19:40 | NUR ---
NURSE NOTES: Received report from ALPESH Najera. All transfer paperwork has been done. She attempted to give report to [facility] twice but they were not able to take report at that time. I will be calling to give report. Patient alert, oriented x3. IV saline lock intact in LFA. Bed in low position, locked, side rails up x2, call light within reach. Reviewed belongings with patient. Patient would like some coffee at this time, provided. Will continue to monitor.
--- NOTE | 2019-11-26 20:30 | NUR ---
NURSE NOTES: Placed call to [facility] to give nurse to nurse report. Report provided to ALPESH Menchaca. Notified that [facility] is running a bit late and will be picking up patient after 2100.
--- NOTE | 2019-11-26 21:20 | NUR ---
NURSE NOTES: ayla Michelle RN called [facility], s/w [facility], states will be here to pick and shovel man patient no later than 2200.
--- NOTE | 2019-11-26 22:10 | General Progress Note ---
Assessment/Plan Problem List: (1) Psychosis ICD Codes: F29 - Unspecified psychosis not due to a substance or known physiological condition SNOMED: 30840395 Status: progressing Assessment/Plan: pyshosis afebrile vitals stable reviewed chartt [facility] Subjective ROS Limited/Unobtainable: Yes Allergies: Coded Allergies: LATEX (Verified Allergy, Unknown, 11/24/19) PENICILLINS (Verified Allergy, Unknown, 11/24/19) Uncoded Allergies: PENICILLIN (Allergy, Unknown, 11/24/19) Objective Last 24 Hour Vital Signs Date Time Temp Pulse Resp B/P (MAP) Pulse Ox O2 Delivery O2 Flow Rate FiO2 11/26/19 19:44 84 18 124/75 100 11/26/19 19:14 90 18 131/90 100 11/26/19 16:00 97.9 90 18 131/90 (104) 100 11/26/19 13:00 97.3 86 18 111/71 (84) 100 11/26/19 09:00 Room Air 11/26/19 08:00 97.4 74 18 122/80 (94) 99 11/26/19 04:45 98.2 78 18 128/80 (96) 100 11/26/19 00:00 98.0 80 16 118/77 (91) 97 Intake and Output 11/25/19 11/26/19 19:00 07:00 Intake Total 800 ml 750 ml Balance 800 ml 750 ml Intake Oral 800 ml 750 ml # Voids 3 3 Height (Feet): 5 Height (Inches): 4.00 Weight (Pounds): 145 Anselmo Morgan MD Nov 26, 2019 22:10
--- NOTE | 2019-11-26 22:15 | NUR ---
NURSE NOTES: Viviana, charger operator helper s/w [facility] from [facility], states that will cotton picker operator in 20 to 30 minutes.
--- NOTE | 2019-11-26 23:05 | NUR ---
NURSE NOTES: [facility] here to take patient to [facility]. Given report to Marilin Art. VSS, IV saline lock discontinued. ID bands taken off. Patient has belongings with her. No distress noted.
--- NOTE | 2019-11-26 23:10 | NUR ---
NURSE NOTES: Patient left via gurney with ambulance staff to [facility]. Condition stable.
--- NOTE | 2019-11-26 23:24 | Initial Psychiatric Evaluation ---
Psychiatry Consultation Psychiatry Consultation Chief Complaint: General Complaint Allergies: Coded Allergies: LATEX (Verified Allergy, Unknown, 11/24/19) PENICILLINS (Verified Allergy, Unknown, 11/24/19) Uncoded Allergies: PENICILLIN (Allergy, Unknown, 11/24/19) Medication History Scheduled Nicotine (Nicotine Patch), 1 EACH TD 24 hrs, (Reported) Scheduled PRN Acetaminophen* (Acetaminophen 325MG Tablet*), 650 MG ORAL Q4H PRN for For Headache, (Reported) Objective Data Height (Feet): 5 Height (Inches): 4.00 Weight (Pounds): 145 Additional Comments: alert and oriented times self, place, situation, and date. Mood is anxious. Affect is blunted, congruent with mood. Thought process is concrete. Thought content, no suicidal or homicidal ideation. Cognition is impaired. Insight and judgment impaired. Assessment/Plan Diagnosis [place] [facility]: ASSESSMENT: 1. Schizophrenia. 2. Major depressive disorder. PLAN: 1. Continue current medications. 2. Provide the patient with reality orientation and supportive therapy. 3. Ativan as needed. Laureen Nesbitt MD Nov 26, 2019 23:24
--- NOTE | 2019-11-27 17:14 | Consultation ---
DATE OF CONSULTATION: 11/26/2019 ENDOCRINOLOGY CONSULTATION CONSULTING PHYSICIAN: Tejas Russell M.D. REFERRING PHYSICIAN: Anselmo Morgan M.D. REASON FOR CONSULTATION: . HISTORY OF PRESENT ILLNESS: I was asked to see this 39-year-old female by Dr. Anselmo Morgan in endocrinology consultation for evaluation and management of hypothyroidism. presented to the emergency department with acute psychosis and delusions Haldol, Synthroid 150 mcg p.o. prior to admission. TSH was elevated at 107 . PHYSICAL EXAMINATION: GENERAL: The patient is resting comfortably. VITAL SIGNS: Blood pressure 118/77, pulse 80, respiratory rate . HEAD AND NECK: Unremarkable. No jugular venous distention. LUNGS: Clear. HEART: . ABDOMEN: Soft. EXTREMITIES: No edema. LABORATORY DATA: . TSH 107. ASSESSMENT: 1. Hypothyroidism . 2. Acute psychosis. PLAN: continue levothyroxine 150 mcg p.o. daily . Tejas Russell M.D. DR: JAS JOB#: [id number] CC:
--- NOTE | 2019-11-27 17:15 | Consultation ---
DATE OF CONSULTATION: 11/26/2019 CONSULTING PHYSICIAN: Laureen Nesbitt MD HISTORY OF PRESENT ILLNESS: This is a 39-year-old discharged from the hospital with confusion. The patient is presenting with anxiety, agitation, psychotic disorder, suicidal thoughts. The patient continues to be easily agitated. Poor insight. MENTAL STATUS EXAMINATION: The patient is alert and oriented times self, place, situation, and date. Mood is anxious. Affect is blunted, congruent with mood. Thought process is concrete. Thought content, no suicidal or homicidal ideation. Cognition is impaired. Insight and judgment impaired. ASSESSMENT: 1. Schizophrenia. 2. Major depressive disorder. PLAN: 1. Continue current medications. 2. Provide the patient with reality orientation and supportive therapy. 3. Ativan as needed. Laureen Nesbitt M.D. DR: CLAU JOB#: [id number] CC: DEJA
--- NOTE | 2019-11-28 11:46 | Discharge Summary ---
Discharge Summary Discharge Summary _ DATE OF ADMISSION: 11/24/2019 DATE OF DISCHARGE: 11/26/2019 DISCHARGED BY: Dr Morgan REASON FOR ADMISSION: 39 years old female with past medical history of hypothyroidism , secondary to thyroidectomy due to thyroid cancer, schizophrenia, noncompliant with medication, homeless, presented with altered mental status. Patient was admitted to the hospital few days ago left AGAINST MEDICAL ADVICE. At that time she was admitted for pneumonia as well as for psychiatric evaluation. Patient denied drug or alcohol use. Patient denied homicidal or suicidal ideation. Upon evaluation vital signs were stable. Laboratory work-up revealed no leukocytosis, stable hemoglobin, hematocrit and platelet count. Stable electrolytes. Lactic acid 1.3. Troponin negative . EKG showed sinus rhythm, no acute ischemic changes. TSH 107.65. Urinalysis revealed no evidence of urinary tract infection, + 1 leukocyte esterase. Urine toxicology screen was positive for marijuana. Serum salicylates, Tylenol, and alcohol levels were all negative. Chest x-ray demonstrated no active disease. Patient received 150 mcg of Synthroid in the emergency department and admitted to the hospital for further evaluation. Patient also received 5 mg of Haldol intramuscularly. CONSULTANTS: screw machine operator swiss type Dr. Mendoza ID specialist Dr. Murray Duncan psychiatrist Dr. Nesbitt [facility]SE: Patient admitted to medical surgical floor. Slot Machine Key Person and psychiatrist seen and evaluated patient. Patient was continued on Synthroid 150 mcg daily. Slot Machine Key Person recommended to repeat TSH and free T4 in 2 weeks and strongly encouraged compliance with medication. Psychiatric medication regimen optimized as per psychiatrist. Patient was provided with reality orientation and supportive therapy. Anxiolytic were on board as needed. ID specialist seen and evaluated patient. Chest x-ray revealed no evidence of pneumonia. Patient remained afebrile, no leukocytosis, no respiratory symptoms ID specialist recommended to keep patient off antibiotics. Patient was on nicotine started on nicotine patch due to nicotine dependency. Wound care provided for multiply abrasions on both hands. Patient remained medically stable. Transfer was arranged to psychiatric unit at [facility]. Patient was stable for transfer. FINAL DIAGNOSES: Hypothyroidism with elevated TSH Schizophrenia COPD Nicotine dependency Major depressive disorder Noncompliance with medication DISCHARGE MEDICATIONS: See Medication Reconciliation list. DISCHARGE INSTRUCTIONS: Patient was discharged to psychiatric unit at [facility] for further management. I have been assigned to dictate discharge summary for this account. I was not involved in the patient's management. Alee Erwin NP Nov 28, 2019 11:46
--- NOTE | 2019-11-28 21:55 | Cardiology Report ---
APPROVED REPORT EKG Measurement Heart [id number] SC 132P-6 [id number] <Conclusion> Normal sinus rhythm Low voltage QRS Septal infarct, age undetermined Abnormal ECG
== END 2019-11-26 23:10 | DRG 885 ==
LOC: EMR 22:55 → 3E 23:43 → EDBEDREQ 11-25 00:51
DX: F23 Brief psychotic disorder (principal); Z88.0 Allergy status to penicillin; Z91.040 Latex allergy status; F20.0 Paranoid schizophrenia; R94.6 Abnormal results of thyroid function studies; F17.200 Nicotine dependence, unspecified, uncomplicated; E16.2 Hypoglycemia, unspecified; Z85.850 Personal history of malignant neoplasm of thyroid; E89.0 Postprocedural hypothyroidism; Z91.14 Patient's other noncompliance with medication regimen; J44.9 Chronic obstructive pulmonary disease, unspecified; F32.9 Major depressive disorder, single episode, unspecified; S60.512A Abrasion of left hand, initial encounter; S60.511A Abrasion of right hand, initial encounter; X58.XXXA Exposure to other specified factors, initial encounter
CPT/HCPCS: 36415; 71045; 80053; 80307; 81003; 81025; 83605; 84443; 84484; 85025; 87081; 93005; 96372; 99291; G0480